=== PATIENT | female | born 1955 ===

== ENCOUNTER 2022-03-04 12:38 | Emergency (ER) | payer OTHER ==
[~2022-03-04] VITALS: Ht 157.5 cm; Wt 71.7 kg
[~2022-03-04 12:38] MED LIST: COZAAR50 MG PO; DOLOGEN CAPLET1 TAB PO; KETO10TA2 PO; MEDROL4 MG PO; ORPH100T PO; SYNTHROID100 MCG PO; ULTRACET PO; ZYRTEC ITCHY EYE5 ML OP
[2022-03-04] MEDS ORDERED: SYNTHROID75 MCG PO (13:13)
[2022-03-04] MEDS ORDERED: ATORVASTATIN CA20 MG PO (13:15)
[2022-03-04] MEDS ORDERED: GLUMETZA1000 MG PO (13:15)
== END 2022-03-04 17:59 | disposition home or self-care (01) ==
LOC: ER 12:38
DX: R11.10 Vomiting, unspecified (principal); J06.9 Acute upper respiratory infection, unspecified; Z20.822 Contact with and (suspected) exposure to COVID-19